=== PATIENT | male | born 1965 | race Caucasian/White ===

== ENCOUNTER → 2017-02-23 | Outpatient (CLI) | payer BC ==
--- NOTE | 2017-02-23 18:43 | Diagnostic Imaging Report ---
EXAMINATION: Three views of the right hand. INDICATION: Injury with pain around the fifth metacarpal bone. FINDINGS: The fifth metacarpal and fifth finger appear unremarkable. There is a 5 mm bone fragment seen near the base of the distal phalanx of the right thumb. The finding was discussed with Dr. Kinney who stated that the patient does not have any symptoms in this region suggestive of sequela of old injury or an accessory ossicle. Joint alignment is satisfactory. No radiopaque foreign body. IMPRESSION: No acute process. Dictated on workstation # [id number]
== END ==
LOC: RAD 09:31
PROVIDERS: ATTEND Family Medicine
DX: S69.91XA Unspecified injury of right wrist, hand and finger(s), initial encounter (principal); X58.XXXA Exposure to other specified factors, initial encounter; Y99.8 Other external cause status
CPT/HCPCS: 73130

== ENCOUNTER 2019-03-13 08:12 | Emergency (ER) | payer BC ==
[~2019-03-13] VITALS: Ht 180 cm; Wt 75.0 kg
[2019-03-13] MEDS ORDERED: LACTATED RINGERS 1,000 ML IV ONE (08:59)
[2019-03-13 09:07] LABS: BASOPHILS % (AUTO) 0 % (0-10); EOSINOPHILS # (AUTO) 0.2 10^3/uL (0.0-0.3); EOSINOPHILS % (AUTO) 4 % (0-10); HEMATOCRIT 46 % (40-54); HEMOGLOBIN 15.5 G/DL (13.3-17.7); LYMPHOCYTES # (AUTO) 1.8 X 10^3 (1.0-4.0); LYMPHOCYTES % (AUTO) 27 % (12-44); MEAN CORPUSCULAR HEMOGLOBIN 31 PG (25-34); MEAN CORPUSCULAR HGB CONC 34 G/DL (32-36); MEAN CORPUSCULAR VOLUME 90 FL (80-99); MEAN PLATELET VOLUME 9.9 FL (7.4-10.4); MONOCYTES # (AUTO) 0.6 X 10^3 (0.0-1.0); MONOCYTES % (AUTO) 8 % (0-12); NEUTROPHILS # (AUTO) 4.1 X 10^3 (1.8-7.8); NEUTROPHILS % (AUTO) 61 % (42-75); PLATELET COUNT 200 10^3/uL (130-400); RED CELL DISTRIBUTION WIDTH 13.1 % (10.0-14.5); WHITE BLOOD COUNT 6.8 10^3/uL (4.3-11.0)
[2019-03-13 09:17] LABS: BILIRUBIN,URINE NEGATIVE (NEGATIVE); CLARITY,URINE CLEAR; COLOR,URINE YELLOW; GLUCOSE, URINE (UA) NEGATIVE (NEGATIVE); KETONES,URINE NEGATIVE (NEGATIVE); LEUKOCYTE ESTERASE ,URINE NEGATIVE (NEGATIVE); NITRITE,URINE NEGATIVE (NEGATIVE); PROTEIN,URINE 1+ (NEGATIVE)
[2019-03-13 09:32] LABS: BACTERIA,URINE FEW /HPF; RBC,URINE >100 /HPF; SQUAMOUS EPITHELIAL CELL,UR 0-2 /HPF
[2019-03-13 09:33] LABS: ALANINE AMINOTRANSFERASE 20 U/L (0-55); ALBUMIN 4.2 GM/DL (3.2-4.5); ALKALINE PHOSPHATASE 59 U/L (40-136); AMYLASE 104 U/L (25-125); BILIRUBIN,TOTAL 0.2 MG/DL (0.1-1.0); BUN/CREATININE RATIO 10; CALCIUM 8.9 MG/DL (8.5-10.1); CARBON DIOXIDE 26 MMOL/L (21-32); CHLORIDE 107 MMOL/L (98-107); GFR ESTIMATED > 60; GLUCOSE 95 MG/DL (70-105); LIPASE 21 U/L (8-78); POTASSIUM 4.2 MMOL/L (3.6-5.0); SODIUM 141 MMOL/L (135-145); TOTAL PROTEIN 6.6 GM/DL (6.4-8.2)
[2019-03-13] MEDS ORDERED: KETOROLAC 30 MG/ML VIAL IVP ONE (09:45)
--- NOTE | 2019-03-13 09:58 | Diagnostic Imaging Report ---
PROCEDURE: CT urinary tract, rule out kidney stone. TECHNIQUE: Multiple contiguous axial images were obtained through the abdomen and pelvis without the use of intravenous contrast. Auto Exposure Controls were utilized during the CT exam to meet ALARA standards for radiation dose reduction. INDICATION: Right-sided abdominal pain. Hematuria. COMPARISON: None. FINDINGS: The included portions of the lung bases are clear. CT ABDOMEN: A normal appendix is identified. The small bowel loops are nondistended. The ureters cannot be followed in their entirety but there is a 3 mm calcification projecting over the expected location of the distal right ureter (image 99, series 2). Additionally, there does appear to be mild asymmetric right-sided hydroureteronephrosis and subtle peripelvic stranding on the right. An additional nonobstructive right renal calculus is also noted within the inferior pole. No renal or ureteral calculi are seen on the left. There is no hydroureteronephrosis or other evidence of obstruction on the left. Otherwise, no focal renal lesions are identified on this noncontrast exam. The adrenal glands, spleen, and pancreas have an unremarkable noncontrast CT appearance. There is well circumscribed hypodensity within segment 7 of the liver that measures 2.7 x 3 cm and is incompletely characterized on this exam but appears slightly hyperdense to a simple hepatic cyst. There is no loculated fluid collection, free fluid, or free air within the abdomen. No abnormal mesenteric or retroperitoneal adenopathy is seen. There is mild scattered calcified aortic atherosclerosis. The osseous structures show no acute abnormalities. CT PELVIS: The urinary bladder is unopacified. No calculi are seen within the urinary bladder. Again, there is a probable small 3 mm distal right ureteral calculus. There is no loculated fluid collection, free fluid, or free air within the pelvis. No abnormal lymph nodes are identified. The osseous structures show no acute abnormalities. IMPRESSION: 1. Probable small 3 mm distal right ureteral calculus resulting in mild proximal hydroureteronephrosis. 2. Additional nonobstructive right renal calculus. 3. Normal appendix. 4. Incompletely characterized relative hypodensity of the right lobe of the liver. Conceivably, this could be on the basis of hemangioma but other neoplastic or malignant process cannot be excluded. Followup with hepatic protocol CT of the abdomen is recommended and could be performed on a nonemergent basis. Dictated by: Dictated on workstation # [id number]
[2019-03-13] MEDS ORDERED: TAMS0.4C98 PO (10:20)
[2019-03-13] MEDS ORDERED: SULF1TAB35 PO (10:20)
[2019-03-13] MEDS ORDERED: ONDA8TAB13 PO (10:20)
[2019-03-13] MEDS ORDERED: IBUP-1780 PO (10:20)
--- NOTE | 2019-03-13 10:20 | ED Abdominal Pain ---
General Stated Complaint: PASSING BLOOD, ABD PAIN, BACK PAIN Source of Information: Patient, Spouse History of Present Illness Date Seen by Provider: Mar 13, 2019 Time Seen by Provider: 08:56 Initial Comments PT ARRIVES VIA POV FROM HOME C/O RIGHT FLANK PAIN SINCE TUESDAY EVENING 03/10/19--STATES PAIN STOPPED ON THE WAY HERE NOTICED BLOOD IN HIS URINE THIS AM,. BUT NO PAIN OR DIFFICULTY URINATING NO NAUSEA/VOMITING NO DIARRHEA. HAS BEEN CONSTIPATED, BUT HAD BM THIS AM NO FEVER NOTHING WORSENS OR IMPROVES SYMPTOMS HAS NOT TAKEN ANYTHING FOR PAIN SYMPTOMS NO DIFFERENT TODAY HAS NOT SOUGHT CARE UNTIL TODAY NO HISTORY OF SIMILAR STATES HE DRINKS AT LEAST 20 PEPSI'S A DAY, EVERY DAY PCP: DR. ECKERT Allergies and Home Medications Allergies Uncoded Allergies: TORDOL (Allergy, Unknown, 03/13/19) Home Medications Ibuprofen 800 Mg Tablet, 800 MG PO Q8H PRN for PAIN Prescribed by: SIDDHARTHA AQUINO on 03/13/19 1020 Ondansetron 8 Mg Tab.rapdis, 8 MG PO Q6H Prescribed by: SIDDHARTHA AQUINO on 03/13/19 1020 Sulfamethoxazole/Trimethoprim 1 Each Tablet, 1 EACH PO BID Prescribed by: SIDDHARTHA AQUINO on 03/13/19 1020 Tamsulosin HCl 0.4 Mg Cap, 0.4 MG PO DAILY Prescribed by: SIDDHARTHA AQUINO on 03/13/19 1020 Patient Home Medication List Home Medication List Reviewed: Yes Review of Systems Review of Systems Constitutional: no symptoms reported Respiratory: No Symptoms Reported Cardiovascular: No Symptoms Reported Gastrointestinal: See HPI; Denies Abdominal Pain; Constipated; Denies Diarrhea, Denies Nausea, Denies Vomiting Genitourinary: See HPI; Denies Burning, Denies Frequency; Flank Pain, Hematuria; Denies Incontinence, Denies Pain, Denies Urgency Musculoskeletal: see HPI, back pain Skin: no symptoms reported Psychiatric/Neurological: No Symptoms Reported Endocrine: No Symptoms Reported Hematologic/Lymphatic: See HPI Past Znmwyel-Tnwfnb-Lssway Hx Past Med/Social Hx: Reviewed and Corrections made Patient Social History Alcohol Use: Denies Use Recreational Drug Use: Yes (THC) Drug of Choice: THC Smoking Status: Current Everyday Smoker (2 PPD) Type Used: Cigarettes (2 PPD) Recent Foreign Travel: No Contact w/Someone Who Travel: No Past Medical History Surgeries: Yes (HEMORRHOIDECTOMY; RIGHT INGUINAL HERNIA ) Abdominal, Rectal Respiratory: No (DENIES RESPSIRATORY PROBLEMS, BUT SMOKES 2 PPD) Cardiac: No Neurological: No Reproductive Disorders: No Genitourinary: No Gastrointestinal: Yes (S/P RIGHT INGUINAL HERNIA REPAIR; S/P HEMORRHOIDECTOMY) Abdominal Hernia, Hemorrhoids Musculoskeletal: No Endocrine: No HEENT: No Cancer: No Psychosocial: No Integumentary: No Blood Disorders: No Physical Exam Vital Signs Vital Signs - First Documented 03/13/19 09:00 Temp 36.9 Pulse 63 Resp 18 B/P (MAP) 127/66 (86) Pulse Ox 99 Capillary Refill : Height/Weight/BMI Height: '" Weight: lbs. oz. kg; BMI Method: General Appearance: no apparent distress, thin, other (DOES NOT APPEAR TO BE IN ANY DISCOMFORT OR DISTRESS) Neck: normal inspection Respiratory: normal breath sounds, no respiratory distress, no accessory muscle use Cardiovascular: regular rate, rhythm, no murmur Gastrointestinal: normal bowel sounds, non tender, soft, no organomegaly Back: normal inspection, no CVA tenderness, no vertebral tenderness Neurologic/Psychiatric: director channel II-XII nml as tested, no motor/sensory deficits, alert, normal mood/affect, oriented x 3 Skin: normal color, warm/dry; No rash Progress/Results/Core Measures Results/Orders Lab Results Laboratory Tests Test 03/13/19 08:55 Range/Units White Blood Count 6.8 4.3-11.0 10^3/uL Red Blood Count 5.08 4.35-5.85 10^6/uL Hemoglobin 15.5 13.3-17.7 G/DL Hematocrit 46 40-54 % Mean Corpuscular Volume 90 80-99 FL Mean Corpuscular Hemoglobin 31 25-34 PG Mean Corpuscular Hemoglobin Concent 34 32-36 G/DL Red Cell Distribution Width 13.1 10.0-14.5 % Platelet Count 200 130-400 10^3/uL Mean Platelet Volume 9.9 7.4-10.4 FL Neutrophils (%) (Auto) 61 42-75 % Lymphocytes (%) (Auto) 27 12-44 % Monocytes (%) (Auto) 8 0-12 % Eosinophils (%) (Auto) 4 0-10 % Basophils (%) (Auto) 0 0-10 % Neutrophils # (Auto) 4.1 1.8-7.8 X 10^3 Lymphocytes # (Auto) 1.8 1.0-4.0 X 10^3 Monocytes # (Auto) 0.6 0.0-1.0 X 10^3 Eosinophils # (Auto) 0.2 0.0-0.3 10^3/uL Basophils # (Auto) 0.0 0.0-0.1 10^3/uL Urine Color YELLOW Urine Clarity CLEAR Urine pH 6.0 5-9 Urine Specific [place] 1.020 1.016-1.022 Urine Protein 1+ H NEGATIVE Urine Glucose (UA) NEGATIVE NEGATIVE Urine Ketones NEGATIVE NEGATIVE Urine Nitrite NEGATIVE NEGATIVE Urine Bilirubin NEGATIVE NEGATIVE Urine Urobilinogen 0.2 < = 1.0 MG/DL Urine Leukocyte Esterase NEGATIVE NEGATIVE Urine RBC (Auto) 3+ H NEGATIVE Urine RBC >100 H /HPF Urine WBC NONE /HPF Urine Squamous Epithelial Cells 0-2 /HPF Urine Crystals NONE /LPF Urine Bacteria FEW H /HPF Urine Casts NONE /LPF Urine Mucus NEGATIVE /LPF Urine Culture Indicated YES Sodium Level 141 135-145 MMOL/L Potassium Level 4.2 3.6-5.0 MMOL/L Chloride Level 107 98-107 MMOL/L Carbon Dioxide Level 26 21-32 MMOL/L Anion Gap 8 5-14 MMOL/L Blood Urea Nitrogen 12 7-18 MG/DL Creatinine 1.20 0.60-1.30 MG/DL Estimat Glomerular Filtration Rate > 60 BUN/Creatinine Ratio 10 Glucose Level 95 70-105 MG/DL Calcium Level 8.9 8.5-10.1 MG/DL Corrected Calcium 8.7 8.5-10.1 MG/DL Total Bilirubin 0.2 0.1-1.0 MG/DL Aspartate Amino Transf (AST/SGOT) 16 5-34 U/L Alanine Aminotransferase (ALT/SGPT) 20 0-55 U/L Alkaline Phosphatase 59 40-136 U/L Total Protein 6.6 6.4-8.2 GM/DL Albumin 4.2 3.2-4.5 GM/DL Amylase Level 104 25-125 U/L Lipase 21 8-78 U/L My Orders Orders - SIDDHARTHA AQUINO DO Ed Iv/Invasive Line Start (03/13/19 08:59) Ct Abd/Pelvis Wo(Kidney Stone) (03/13/19 08:59) Amylase (03/13/19 08:59) Cbc With Automated Diff (03/13/19 08:59) Comprehensive Metabolic Panel (03/13/19 08:59) Lipase (03/13/19 08:59) Ua Culture If Indicated (03/13/19 08:59) Ed Iv/Invasive Line Start (03/13/19 08:59) Lactated Ringers (Lr 1000 Ml Iv Solution (03/13/19 08:59) Urine Culture (03/13/19 08:55) Ketorolac Injection (Toradol Injection) (03/13/19 09:45) Abdomen/Kub 1view (03/13/19 10:07) Tamsulosin Capsule (Flomax Capsule) (03/13/19 10:30) Medications Given in ED Vital Signs/I&O 03/13/19 03/13/19 09:00 10:46 Temp 36.9 36.9 Pulse 63 63 Resp 18 18 B/P (MAP) 127/66 (86) 127/66 (86) Pulse Ox 99 99 Progress Progress Note : Progress Note NO PAIN DURING ER STAY PT IS ADAMANT THAT HE ONLY WANTS IBUPROFEN FOR PAIN, AND NOTHING ELSE. Diagnostic Imaging Comments CT ABDOMEN/PELVIS--3 MM RIGHT DISTAL URETERAL STONE, WITH MILD RIGHT HYDRONEPHROSIS, RIGHT INTRA-RENAL STONE. NO-SPECIFIC DENSITY IN LIVER. NO OTHER ACUTE PROCESS--PER RADIOLOGIST REPORT AT 1009 ABDOMEN XRAYS--SMALL DENSITY IN RIGHT PELVIS--PER RADIOLOGIST REPORT Reviewed: Reviewed by Me Departure Impression Primary Impression: Right distal ureteral calculus Disposition: 01 HOME, SELF-CARE Condition: Improved Departure-Patient Inst. Referrals: ROYAL ECKERT MD (PCP/Family) Primary Care Physician VANDANA HOPKINS MD Patient Instructions: How to Strain Your Urine, Kidney Stones (DC) Add. Discharge Instructions: LOTS OF CLEAR LIQUIDS STRAIN ALL URINE--RETURN ANY STONES TO DR. HOPKINS'S OFFICE RETURN TO ER IF SYMPTOMS WORSEN Scripts Ondansetron (Ondansetron Odt) 8 Mg Tab.rapdis 8 MG PO Q6H for Nausea/Vomiting, #10 TAB Prov: SIDDHARTHA AQUINO K DO 03/13/19 Ibuprofen (Ibuprofen) 800 Mg Tablet 800 MG PO Q8H PRN for PAIN, #30 TAB Prov: KENIASIDDHARTHA K DO 03/13/19 Sulfamethoxazole/Trimethoprim (Bactrim Ds Tablet) 1 Each Tablet 1 EACH PO BID, #20 TAB Prov: SIDDHARTHA AQUINO DO 03/13/19 Tamsulosin HCl (Flomax) 0.4 Mg Cap 0.4 MG PO DAILY, #10 CAP Prov: SIDDHARTHA AQUINO DO 03/13/19 SIDDHARTHA AQUINO DO Mar 13, 2019 10:20 POS
[2019-03-13] MEDS ORDERED: TAMSULOSIN 0.4 MG (FLOMAX) CAP PO SCH (10:30)
[2019-03-13 10:46] VITALS: BP 127/66
--- NOTE | 2019-03-13 11:05 | Diagnostic Imaging Report ---
EXAMINATION: Supine abdomen at 1044 hours. INDICATION: Urolithiasis. FINDINGS: The CT abdomen/pelvis exam performed earlier today at 9:37 AM did note partial obstruction of the right collecting system due to a 3 mm calculus in the distal right ureter. On this exam, there is a similar sized faint calcific density low in the pelvis on the right. This may well correspond to the obstructive calculus seen on the CT exam. Also, as noted on the CT exam, there are dense calcifications involving the prostate gland. The 2-3 mm nonobstructive calculus within the right kidney seen on the CT exam is difficult to appreciate on this study as the right kidney is partially obscured by bowel gas and fecal material. The left kidney is completely obscured by bowel gas and fecal material. The bowel gas pattern is nonspecific. There is no evidence for a bowel obstruction. There is no mass or organomegaly appreciated. The osseous structures are intact. IMPRESSION: 1. There is a small calcific density low in the pelvis on the right. This most likely corresponds to the obstructive calculus involving the right ureter seen on the CT abdomen/pelvis exam. 2. The nonobstructive calculus within the right kidney seen on the prior CT exam is not well visualized on this study. There are no other pathological calcifications evident aside from prostatic calcifications. Dictated by: Dictated on workstation # [id number]
== END 2019-03-13 10:46 | disposition home or self-care (01) ==
LOC: EDUNIT# 08:12 → ER 08:13
DX: N13.2 Hydronephrosis with renal and ureteral calculous obstruction (principal); F17.210 Nicotine dependence, cigarettes, uncomplicated; Z88.6 Allergy status to analgesic agent
CPT/HCPCS: 36415; 74018; 74176; 80053; 81000; 82150; 83690; 85025; 87088; 96360

== ENCOUNTER → 2019-04-06 | Outpatient (CLI) | payer BC ==
[~2019-04-06] MED LIST: BARIUM SUSPENSION 2.1% (VANILLA SILQ) 450 ML PO ONE; CATHETER FLUSH 10 ML SYR IV PRN; HOLD METFORMIN - RECEIVED CONTRAST 20 ML VIAL IV SCH; IBUP-1780 PO; IOHEXOL 350 MG/ML 100 ML (OMNIPAQUE 350) VIAL IV ONE; NS 100 ML (IVPB) BAG IV ONE; ONDA8TAB13 PO; SULF1TAB35 PO; TAMS0.4C98 PO
--- NOTE | 2019-04-06 10:22 | Diagnostic Imaging Report ---
PROCEDURE: CT abdomen with and without contrast. TECHNIQUE: Multiple contiguous axial CT images of the abdomen were obtained prior to and after intravenous administration of iodinated contrast. Auto Exposure Controls were utilized during the CT exam to meet ALARA standards for radiation dose reduction. INDICATION: Hypodense lesion in right hepatic lobe seen on nonenhanced CT, contrast-enhanced imaging performed as its further evaluation. FINDINGS: The right hepatic lobe mass posterolaterally measured a diameter of 3.1 cm and during the immediate post contrast-enhanced arterial-phased imaging shows peripheral nodular enhancement. This shows gradual filling in on the delayed acquisitions, confirming benign hemangioma. A second smaller lesion of the same etiology is in the far caudal tip of the right hepatic lobe posteriorly measuring a diameter of 1.1 cm. Third lesion, also consistent with hemangioma in the lateral sector of the left hepatic lobe, measured 8 mm. No suspicious liver lesion. No bile duct dilatation. Spleen, adrenals, and pancreas are unremarkable. The gallbladder was negative. There has been interval resolution of the previous right hydronephrosis. There is no lymphadenopathy. There is no ascites, fluid collection, or bowel obstruction. The appendix is air containing and normal, where visualized. IMPRESSION: 1. 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 No suspicious liver lesion. 2. Resolution of previous right hydronephrosis. 3. No acute or suspicious abnormality identified. Dictated by: Dictated on workstation # [id number]
== END ==
LOC: RAD 08:20
PROVIDERS: ATTEND Family Medicine
DX: D18.09 Hemangioma of other sites (principal); N13.30 Unspecified hydronephrosis
CPT/HCPCS: 74170